=== PATIENT | female | born 1990 | race Caucasian/White ===

== ENCOUNTER 2017-08-16 23:17 | Emergency (ER) | payer SELFPAY ==
[2017-08-16] MEDS ORDERED: Cephalexin 500 MG CAP ONE (23:31)
[2017-08-16] MEDS ORDERED: Ibuprofen 800 MG TAB ONE (23:31)
[2017-08-16] MEDS ORDERED: HYDROcodone/Acetaminophen 5/325 mg Tablet ONE (23:35)
== END 2017-08-16 23:42 | disposition home or self-care (01) ==
LOC: MADERS 23:17
DX: L03.811 Cellulitis of head [any part, except face] (principal); F43.10 Post-traumatic stress disorder, unspecified; F41.9 Anxiety disorder, unspecified; F42.9 Obsessive-compulsive disorder, unspecified; F17.210 Nicotine dependence, cigarettes, uncomplicated
CPT/HCPCS: 99283

== ENCOUNTER 2017-11-12 09:40 | Emergency (ER) | payer SELFPAY ==
[~2017-11-12 09:40] MED LIST: Sodium Chloride 0.9% 1,000 ML BAG ONE
[2017-11-12 10:03] LABS: Bilirubin Negative (Negative); Blood, Urine Moderate (Negative); Clarity Hazy (Clear); Glucose, Urine (Dipstick) Negative (Negative); Leukocyte Moderate (Negative); Nitrite Negative (Negative); Protein, Urine (Dipstick) Negative (Neg-Trace); Urobilinogen 0.2 mg/dL (0.2-1.0); pH, Urine 6.5 (5.0-9.0)
[2017-11-12 10:04] LABS: Bacteria/HPF 2+ HPF (None Seen); Squamous Epithelial 0-3 HPF (0-3); WBC/HPF 21-50 HPF (0-3)
[2017-11-12] MEDS ORDERED: Acetaminophen 500 MG TAB ONE ×2 (10:35)
[2017-11-12 10:41] LABS: ALT (SGPT) 16 U/L (8-55); AST (SGOT) 14 U/L (5-34); Albumin 4.4 g/dL (3.5-5.0); Alkaline Phosphatase 89 U/L (40-150); Anion Gap 15 mmol/L (10-20); BUN (Urea Nitrogen) 7 mg/dL (7.0-18.7); Bilirubin, Total 0.7 mg/dL (0.2-1.2); Calc. Creatinine Clearance 0 mL/min (70-130); Calcium 9.6 mg/dL (7.8-10.44); Carbon Dioxide 26 mmol/L (22-29); Chloride 101 mmol/L (98-107); Estimated GFR-MDRD Greater than 90; Globulin 3.4 g/dL (2.4-3.5); Glucose 92 mg/dL (70-105); Potassium 3.5 mmol/L (3.5-5.1); Protein, Total 7.8 g/dL (6.0-8.3); Sodium 138 mmol/L (136-145)
[2017-11-12] MEDS ORDERED: Ketorolac Tromethamine 30 MG/ML VIAL ONE (10:45)
[2017-11-12 10:49] LABS: Manual Diff?? YES; Mean Corpuscular HGB CONC 34.6 g/dL (32.0-36.0); Mean Corpuscular Hemoglobin 32.3 pg (27.0-31.0); Mean Corpuscular Volume 93.3 fl (81.0-99.0); Mean Platelet Volume 10.7 fL (7.4-10.4); Platelet Count 184 thou/uL (130-400); RBC Distribution Width 10.8 % (11.5-14.5); Red Blood Cell (RBC) Count 4.65 mill/uL (4.20-5.40); White Blood Cell (WBC) Count 15.5 thou/uL (4.8-10.8)
[2017-11-12 10:50] LABS: Anisocytosis SLIGHT = 6-15 cells (100X) (0-5/hpf); Band 2 % (5-11); Lymphocytes 9 % (21-51); MDiff Complete? YES; Monocytes 7 % (0-10); Neutrophil 82 % (42-75); PLT Morphology Comment Appears Adequate
[2017-11-12] MEDS ORDERED: Ondansetron ODT 4 MG TAB ONE (11:08)
--- NOTE | 2017-11-12 11:42 | CT ---
CT OF THE LUMBAR SPINE WITHOUT CONTRAST: Date: 11/12/17 HISTORY: Aching back pain for 3 days. FINDINGS: No acute fracture or subluxation is grossly evident. There are mild multilevel disc degenerative bowen ges. No definite osseous central canal or neural foraminal narrowing is evident. There is some mild s uggested wall thickening involving portions of the left renal pelvis and proximal left ureter which m ay be related to poor distention; however, ascending urinary tract infection cannot be entirely exclu ded. There is partial visualization with a normal appearing appendix. Remaining visualized retroperit oneum is unremarkable. IMPRESSION: 1. No acute osseous abnormality. 2. Mild suggested wall thickening involving the proximal left ureter and left renal pelvis. This cou ld be artifactual in nature but would recommend correlation with clinical examination and laboratory evaluation for possible UTI. POS: [facility]
[2017-11-12] MEDS ORDERED: Ciprofloxacin 500 MG TAB ONE (11:46)
== END 2017-11-12 11:55 | disposition home or self-care (01) ==
LOC: MADERS 09:40
DX: N39.0 Urinary tract infection, site not specified (principal); N12 Tubulo-interstitial nephritis, not specified as acute or chronic; F43.10 Post-traumatic stress disorder, unspecified; F42.9 Obsessive-compulsive disorder, unspecified; F41.9 Anxiety disorder, unspecified; F17.210 Nicotine dependence, cigarettes, uncomplicated
CPT/HCPCS: 72131; 80053; 81003; 81015; 83605; 85025; 85652; 87040; 87077; 87149; 96361; 96374; J1885; J7050; Q0162

== ENCOUNTER 2018-05-08 10:11 | Emergency (ER) | payer SELFPAY | END 2018-05-08 10:50 | disposition home or self-care (01) | LOC: MADERS 10:11 | DX: F32.9 Major depressive disorder, single episode, unspecified (principal); F41.9 Anxiety disorder, unspecified; F42.9 Obsessive-compulsive disorder, unspecified; F43.10 Post-traumatic stress disorder, unspecified; F17.210 Nicotine dependence, cigarettes, uncomplicated | CPT/HCPCS: 99283 ==

== ENCOUNTER 2018-10-21 21:18 | Emergency (ER) | payer SELFPAY ==
[2018-10-21 21:52] LABS: Pregnancy Test - Urine (BHCG) Negative (Negative); Pregu Control Background? CLEAR/WHITE (CLR/WHITE); Pregu Control Bar Appear? YES (CONTROL BAR)
[2018-10-21] MEDS ORDERED: Dexamethasone 4 MG TAB ONE (21:59)
== END 2018-10-21 22:15 | disposition home or self-care (01) ==
LOC: MADERS 21:18
DX: L30.9 Dermatitis, unspecified (principal); F41.9 Anxiety disorder, unspecified; F43.10 Post-traumatic stress disorder, unspecified; F17.210 Nicotine dependence, cigarettes, uncomplicated
CPT/HCPCS: 81025; 99283; J8540

== ENCOUNTER 2018-11-29 20:45 | Emergency (ER) | payer SELFPAY ==
[2018-11-29] MEDS ORDERED: hydrOXYzine 25 MG TAB ONE (22:15)
[2018-11-29] MEDS ORDERED: Dexamethasone 4 MG TAB ONE (22:15)
== END 2018-11-29 22:18 | disposition home or self-care (01) ==
LOC: MADERS 20:45
DX: L25.9 Unspecified contact dermatitis, unspecified cause (principal); F41.9 Anxiety disorder, unspecified; F17.210 Nicotine dependence, cigarettes, uncomplicated
CPT/HCPCS: 99282; J8540

== ENCOUNTER 2019-02-11 12:31 | Emergency (ER) | payer SELFPAY ==
--- NOTE | 2019-02-11 13:08 | RAD ---
LEFT ANKLE 3 VIEWS: Date: 02/11/19 HISTORY: Left ankle pain following an injury, stepped in a hole last night. FINDINGS/IMPRESSION: No fracture, dislocation, or other significant acute osseous abnormality. POS: [facility]
--- NOTE | 2019-02-11 13:09 | RAD ---
EXAM: LEFT FOOT THREE VIEWS: 02/11/19 HISTORY: Left foot injury after stepping in a hole last night. FINDINGS/IMPRESSION: No fracture, dislocation, or other significant acute osseous abnormality. POS: [facility]
== END 2019-02-11 13:32 | disposition home or self-care (01) ==
LOC: MADERS 12:31
DX: S93.402A Sprain of unspecified ligament of left ankle, initial encounter (principal); S93.602A Unspecified sprain of left foot, initial encounter; F42.9 Obsessive-compulsive disorder, unspecified; F43.10 Post-traumatic stress disorder, unspecified; F41.9 Anxiety disorder, unspecified; F17.210 Nicotine dependence, cigarettes, uncomplicated; W18.42XA Slipping, tripping and stumbling without falling due to stepping into hole or opening, initial encounter

== ENCOUNTER 2019-02-15 22:18 | Emergency (ER) | payer SELFPAY | END 2019-02-15 23:08 | disposition home or self-care (01) | LOC: MADERS 22:18 | DX: S93.402A Sprain of unspecified ligament of left ankle, initial encounter (principal); F42.9 Obsessive-compulsive disorder, unspecified; F41.9 Anxiety disorder, unspecified; F17.210 Nicotine dependence, cigarettes, uncomplicated; F43.10 Post-traumatic stress disorder, unspecified; X58.XXXA Exposure to other specified factors, initial encounter | CPT/HCPCS: 99283 ==

== ENCOUNTER 2019-07-07 23:26 | Emergency (ER) | payer SELFPAY ==
[2019-07-07 23:51] LABS: Bilirubin Negative (Negative); Blood, Urine Trace (Negative); Clarity Clear (Clear); Glucose, Urine (Dipstick) Negative (Negative); Leukocyte Negative (Negative); Nitrite Negative (Negative); Protein, Urine (Dipstick) Negative (Neg-Trace); Urobilinogen 0.2 mg/dL (Less than 2)
[2019-07-07 23:53] LABS: Bacteria/HPF None Seen HPF (None Seen); Pregnancy Test - Urine (BHCG) Negative (Negative); Pregu Control Background? CLEAR/WHITE (CLR/WHITE); Pregu Control Bar Appear? YES (CONTROL BAR); RBC/HPF 0-3 HPF (0-3); Specific Gravity 1.015 (1.002-1.036); Squamous Epithelial 0-3 HPF (0-3); WBC/HPF None Seen HPF (0-3)
[2019-07-08] MEDS ORDERED: Morphine 2 MG/ML SYRINGE ONE (01:19)
[2019-07-08] MEDS ORDERED: Morphine 4 MG/ML VIAL ONE (01:19)
[2019-07-08] MEDS ORDERED: Ondansetron ODT 4 MG TAB ONE (01:23)
[2019-07-08 01:54] LABS: #Basophils 0.1 thou/uL (0.0-0.2); #Eosinphils 0.3 thou/uL (0.0-0.7); #Lymphocytes 1.8 thou/uL (1.20-3.40); #Monocytes 0.7 thou/uL (0.11-0.59); #Neutrophils 8.8 thou/uL (1.40-6.50); %Basophils 1.1 % (0.0-1.0); %Eosinophils 2.4 % (0.0-10.0); %Lymphocytes 15.1 % (21.0-51.0); %Monocytes 6.3 % (0.0-10.0); %Neutrophils 75.2 % (42.0-75.0); Hemoglobin 14.3 g/dL (12.0-16.0); Mean Corpuscular HGB CONC 32.3 g/dL (32.0-36.0); Mean Corpuscular Hemoglobin 30.6 pg (27.0-31.0); Mean Corpuscular Volume 94.7 fL (78.0-98.0); Mean Platelet Volume 10.7 fL (7.4-10.4); Platelet Count 188 thou/uL (130-400); RBC Distribution Width 10.9 % (11.5-14.5); Red Blood Cell (RBC) Count 4.68 mill/uL (4.20-5.40); White Blood Cell (WBC) Count 11.7 thou/uL (4.8-10.8)
[2019-07-08 02:13] LABS: ALT (SGPT) 21 U/L (8-55); AST (SGOT) 16 U/L (5-34); Albumin 4.1 g/dL (3.5-5.0); Alkaline Phosphatase 93 U/L (40-110); Anion Gap 15 mmol/L (10-20); BUN (Urea Nitrogen) 10 mg/dL (7.0-18.7); Bilirubin, Total 0.2 mg/dL (0.2-1.2); Calc. Creatinine Clearance 0 mL/min (70-130); Calcium 8.9 mg/dL (7.8-10.44); Carbon Dioxide 21 mmol/L (22-29); Chloride 107 mmol/L (98-107); Estimated GFR-MDRD Greater than 90; Globulin 2.8 g/dL (2.4-3.5); Glucose 92 mg/dL (70-105); Lipase 14 U/L (8-78); Potassium 3.7 mmol/L (3.5-5.1); Protein, Total 6.9 g/dL (6.0-8.3); Sodium 139 mmol/L (136-145)
--- NOTE | 2019-07-08 08:03 | CT ---
PRELIMINARY REPORT/[facility]/EMERGENCY AFTER HOURS PROCEDURE: PROCEDURE INFORMATION: Exam: CT Abdomen And Pelvis Without Contrast Exam date and time: 07/08/2019 12:56 AM Clinical history: 28 years old, female; Abdominal pain; Right lower quadrant (rlq); Patient HX: Er RT flank pain R/O stone TECHNIQUE: Imaging protocol: Computed tomography of the abdomen and pelvis without contrast. Radiation optimization: All CT scans at this facility use at least one of these dose optimization marjorie hniques: automated exposure control; mA and/or kV adjustment per patient size (includes targeted exam s where dose is matched to clinical indication); or iterative reconstruction. COMPARISON: No relevant prior studies available. FINDINGS: Liver: Normal. Gallbladder and bile ducts: Normal Pancreas: Normal. Spleen: Normal. Adrenals: Normal. Kidneys and ureters: No urolithiasis. Stomach and bowel: Normal. Appendix: Appendix is normal. Intraperitoneal space: Unremarkable. No free air. No significant fluid collection. Vasculature: Phleboliths within the pelvis. Lymph nodes: Unremarkable. No enlarged lymph nodes. Bladder: Unremarkable as visualized. Reproductive: Unremarkable as visualized. Bones/joints: Old, ununited left posterior ischium fracture. Soft tissues: Small fat containing umbilical hernia. IMPRESSION: No acute abdominal or pelvic abnormality. No urolithiasis. Thank you for allowing us to participate in the care of your patient. Dictated and Authenticated by: Tj Elise MD 07/08/2019 1:19 AM Central Time ([place] & [place]) FINAL REPORT ABDOMEN CT WITHOUT CONTRAST PELVIC CT WITHOUT CONTRAST: HISTORY: Evaluate for renal calculus. Right flank pain. FINDINGS/IMPRESSION: This report is in agreement with the preliminary report by [facility]. No evidence of obstructive uropathy. Limited evaluation of alimentary canal. No evidence of bowel obstruction. Normal caliber appendix. POS: [facility]
== END 2019-07-08 02:20 | disposition home or self-care (01) ==
LOC: MADERS 23:26
DX: R10.9 Unspecified abdominal pain (principal); F42.9 Obsessive-compulsive disorder, unspecified; F43.10 Post-traumatic stress disorder, unspecified; F41.9 Anxiety disorder, unspecified; F17.210 Nicotine dependence, cigarettes, uncomplicated
CPT/HCPCS: 36415; 74176; 80053; 81003; 81015; 81025; 83605; 83690; 85025; 87086; J2270; Q0162

== ENCOUNTER 2019-09-23 14:27 | Emergency (ER) | payer SELFPAY ==
[2019-09-23] MEDS ORDERED: Dexamethasone 4 MG TAB ONE (14:38)
== END 2019-09-23 14:59 | disposition home or self-care (01) ==
LOC: MADERS 14:27
DX: L30.9 Dermatitis, unspecified (principal); F41.9 Anxiety disorder, unspecified; F43.10 Post-traumatic stress disorder, unspecified; F17.210 Nicotine dependence, cigarettes, uncomplicated; F42.9 Obsessive-compulsive disorder, unspecified
CPT/HCPCS: 99283; J8540

== ENCOUNTER 2019-10-02 19:46 | Emergency (ER) | payer SELFPAY ==
[2019-10-02] MEDS ORDERED: Promethazine HCl 25 MG/ML VIAL ONE (20:38)
[2019-10-02] MEDS ORDERED: diphenhydrAMINE 50 MG/ML VIAL ONE (20:38)
[2019-10-02] MEDS ORDERED: Prochlorperazine 10 MG/2 ML VIAL ONE (20:38)
[2019-10-02] MEDS ORDERED: Meclizine HCl 25 MG TAB ONE (20:38)
--- NOTE | 2019-10-02 20:48 | CT ---
CT Brain WO Con: 10/02/2019 8:26 PM CLINICAL HISTORY: Sudden onset of severe headache. IMAGING TECHNIQUE: Multiple CT images were obtained of the brain without IV contrast. COMPARISON: None. FINDINGS: Brain: No acute infarct or hemorrhage is evident. No midline shift. Ventricles: Normal. No hydrocephalus. Skull: Intact. Visualized Paranasal sinuses: Mild mucosal thickening within the right maxillary sinus. The remaining paranasal sinuses are clear. Mastoid air cells:Clear. Extracranial soft tissues:Normal. IMPRESSION: No acute intracranial abnormality.
== END 2019-10-02 22:20 | disposition left against medical advice (07) ==
LOC: MADERS 19:46
DX: R51 Headache (principal); R42 Dizziness and giddiness; F41.9 Anxiety disorder, unspecified; F42.9 Obsessive-compulsive disorder, unspecified; F43.10 Post-traumatic stress disorder, unspecified; F17.210 Nicotine dependence, cigarettes, uncomplicated; Z79.899 Other long term (current) drug therapy
CPT/HCPCS: 70450; 96365; 96368; 96375; J0780; J1200; J2550; J7050; J8597

== ENCOUNTER 2019-12-12 21:31 | Emergency (ER) | payer SELFPAY ==
[2019-12-12] MEDS ORDERED: Magnesium Citrate 300 ML BOT ONE (22:47)
== END 2019-12-12 22:50 | disposition home or self-care (01) ==
LOC: MADERS 21:31
DX: A09 Infectious gastroenteritis and colitis, unspecified (principal); F41.9 Anxiety disorder, unspecified; F43.10 Post-traumatic stress disorder, unspecified; F17.210 Nicotine dependence, cigarettes, uncomplicated
CPT/HCPCS: 99283

== ENCOUNTER 2020-02-15 12:32 | Emergency (ER) | payer SELFPAY ==
[2020-02-15] MEDS ORDERED: ALPRAZolam 0.5 MG TAB ONE (13:08)
== END 2020-02-15 13:53 | disposition home or self-care (01) ==
LOC: MADERS 12:32
DX: F41.9 Anxiety disorder, unspecified (principal); F43.0 Acute stress reaction; F43.10 Post-traumatic stress disorder, unspecified; F42.9 Obsessive-compulsive disorder, unspecified; F31.9 Bipolar disorder, unspecified; F17.210 Nicotine dependence, cigarettes, uncomplicated
CPT/HCPCS: 99283

== ENCOUNTER 2020-04-06 09:37 | Emergency (ER) | payer SELFPAY | END 2020-04-06 10:18 | disposition home or self-care (01) | LOC: MADERS 09:37 | DX: L03.012 Cellulitis of left finger (principal); L03.011 Cellulitis of right finger; L03.116 Cellulitis of left lower limb; L03.115 Cellulitis of right lower limb; N76.4 Abscess of vulva; F42.9 Obsessive-compulsive disorder, unspecified; F43.10 Post-traumatic stress disorder, unspecified; F41.9 Anxiety disorder, unspecified; F31.9 Bipolar disorder, unspecified; F17.210 Nicotine dependence, cigarettes, uncomplicated | CPT/HCPCS: 99282 ==

== ENCOUNTER 2020-04-08 11:10 | Emergency (ER) | payer SELFPAY | END 2020-04-08 12:21 | disposition home or self-care (01) | LOC: MADERS 11:10 | DX: R42 Dizziness and giddiness (principal); F43.10 Post-traumatic stress disorder, unspecified; F41.9 Anxiety disorder, unspecified; F42.9 Obsessive-compulsive disorder, unspecified; F31.9 Bipolar disorder, unspecified; F17.210 Nicotine dependence, cigarettes, uncomplicated; Z79.899 Other long term (current) drug therapy | CPT/HCPCS: 99283 ==

== ENCOUNTER 2021-02-07 07:50 | Emergency (ER) | payer SELFPAY ==
[2021-02-07] MEDS ORDERED: Sodium Chloride 0.9% 1,000 ML ONE (08:39)
[2021-02-07] MEDS ORDERED: Ondansetron PF 4 MG/2 ML Vial ONE (08:39)
[2021-02-07 08:45] LABS: #Basophils 0.1 thou/uL (0.0-0.2); #Eosinphils 0.4 thou/uL (0.0-0.7); #Lymphocytes 0.3 thou/uL (1.20-3.40); #Monocytes 0.6 thou/uL (0.11-0.59); #Neutrophils 10.4 thou/uL (1.40-6.50); %Basophils 0.5 % (0.0-1.0); %Lymphocytes 2.6 % (21.0-51.0); %Monocytes 4.9 % (0.0-10.0); Hemoglobin 15.3 g/dL (12.0-16.0); Mean Corpuscular HGB CONC 33.1 g/dL (32.0-36.0); Mean Corpuscular Hemoglobin 31.2 pg (27.0-31.0); Mean Corpuscular Volume 94.2 fL (78.0-98.0); Mean Platelet Volume 10.7 fL (7.4-10.4); Platelet Count 171 thou/uL (130-400); White Blood Cell (WBC) Count 11.7 thou/uL (4.8-10.8)
[2021-02-07 09:02] LABS: ALT (SGPT) 10 U/L (8-55); AST (SGOT) 9 U/L (5-34); Albumin 4.1 g/dL (3.5-5.0); Alkaline Phosphatase 80 U/L (40-110); Anion Gap 16 mmol/L (10-20); BUN (Urea Nitrogen) 16 mg/dL (7.0-18.7); Bilirubin, Total 0.6 mg/dL (0.2-1.2); Calc. Creatinine Clearance 0 mL/min (70-130); Calcium 8.7 mg/dL (7.8-10.44); Carbon Dioxide 20 mmol/L (22-29); Chloride 107 mmol/L (98-107); Globulin 2.7 g/dL (2.4-3.5); Glucose 101 mg/dL (70-105); Lipase 20 U/L (8-78); Potassium 3.5 mmol/L (3.5-5.1); Protein, Total 6.8 g/dL (6.0-8.3); Sodium 139 mmol/L (136-145)
== END 2021-02-07 09:40 | disposition home or self-care (01) ==
LOC: MADERS 07:50
DX: E86.0 Dehydration (principal); R19.7 Diarrhea, unspecified; R11.2 Nausea with vomiting, unspecified; F17.210 Nicotine dependence, cigarettes, uncomplicated
CPT/HCPCS: 80053; 83605; 83690; 85025; 96374; J2405; J7050

== ENCOUNTER 2021-02-26 12:30 | Emergency (ER) | payer SELFPAY | END 2021-02-26 13:16 | disposition home or self-care (01) | LOC: MADERS 12:30 | DX: L30.3 Infective dermatitis (principal); F17.210 Nicotine dependence, cigarettes, uncomplicated | CPT/HCPCS: 99282 ==

== ENCOUNTER 2022-05-13 20:02 | Emergency (ER) | payer SELFPAY ==
[~2022-05-13 20:02] MED LIST changes: +Iopamidol 370 76% 125 ML VIAL FS ONE; -Sodium Chloride 0.9% 1,000 ML BAG ONE; +Sodium Chloride 0.9% 100 ML BAG ONE
[2022-05-13 20:25] LABS: #Basophils 0.1 thou/uL (0.0-0.2); #Eosinphils 0.2 thou/uL (0.0-0.7); #Lymphocytes 1.6 thou/uL (1.20-3.40); #Neutrophils 7.5 thou/uL (1.40-6.50); %Basophils 0.6 % (0.0-1.0); %Eosinophils 2.3 % (0.0-10.0); %Lymphocytes 15.2 % (21.0-51.0); %Monocytes 9.3 % (0.0-10.0); %Neutrophils 72.7 % (42.0-75.0); Hemoglobin 14.1 g/dL (12.0-16.0); Mean Corpuscular HGB CONC 33.9 g/dL (32.0-36.0); Mean Corpuscular Hemoglobin 30.3 pg (27.0-31.0); Mean Corpuscular Volume 89.4 fL (78.0-98.0); Mean Platelet Volume 10.8 fL (7.4-10.4); Platelet Count 193 thou/uL (130-400); RBC Distribution Width 11.2 % (11.5-14.5); Red Blood Cell (RBC) Count 4.65 mill/uL (4.20-5.40); White Blood Cell (WBC) Count 10.4 thou/uL (4.8-10.8)
[2022-05-13 20:33] LABS: Bilirubin Negative (Negative); Blood, Urine Negative (Negative); Clarity Clear (Clear); Glucose, Urine (Dipstick) Negative (Negative); Ketone, Urine Negative (Negative); Leukocyte Trace (Negative); Nitrite Negative (Negative); Protein, Urine (Dipstick) Negative (Neg-Trace); RBC/HPF 0-3 HPF (0-3); Squamous Epithelial 0-3 HPF (0-3); Urobilinogen 0.2 mg/dL (Less than 2); WBC/HPF 0-3 HPF (0-3); pH, Urine 6.5 (5.0-9.0)
[2022-05-13 20:46] LABS: ALT (SGPT) 15 U/L (8-55); AST (SGOT) 13 U/L (5-34); Albumin 4.2 g/dL (3.5-5.0); Alkaline Phosphatase 86 U/L (40-110); Anion Gap 13 mmol/L (10-20); BUN (Urea Nitrogen) 6 mg/dL (7.0-18.7); Bilirubin, Total 0.4 mg/dL (0.2-1.2); Calc. Creatinine Clearance 0 mL/min (70-130); Calcium 9.4 mg/dL (7.8-10.44); Carbon Dioxide 24 mmol/L (22-29); Chloride 107 mmol/L (98-107); Estimated GFR 120; Glucose 109 mg/dL (70-105); Potassium 3.2 mmol/L (3.5-5.1); Protein, Total 7.2 g/dL (6.0-8.3); Sodium 141 mmol/L (136-145)
[2022-05-13] MEDS ORDERED: Ketorolac Tromethamine 30 MG/ML VIAL ONE (21:02)
[2022-05-13 21:56] LABS: Amphetamine Not Detected (NotDetected); Barbiturates Screen Not Detected (NotDetected); Benzodiazepine Screen Not Detected (NotDetected); Cocaine Metabolite Screen Not Detected (NotDetected); Medtox Control Line Valid? VALID (VALID); Methadone Not Detected (NotDetected); Methamphetamine Not Detected (NotDetected); Opiate Screen Not Detected (NotDetected); Oxycodone Screen Not Detected (NotDetected); Phencyclidine (PCP) Not Detected (NotDetected); THC/Cannabinoid Screen Not Detected (NotDetected); Tricyclic Screen Not Detected (NotDetected)
== END 2022-05-13 22:43 | disposition home or self-care (01) ==
LOC: MADERS 20:02
DX: R07.2 Precordial pain (principal); R09.1 Pleurisy; F17.210 Nicotine dependence, cigarettes, uncomplicated
CPT/HCPCS: 71046; 71275; 80053; 80306; 81003; 81015; 84484; 85025; 85379; 93005; 96374; J1885; Q9967